=== PATIENT | female | born 1940 | race Caucasian/White ===

== ENCOUNTER 2021-07-03 21:28 | Emergency (ER) | payer MEDICARE, OTHER, SELFPAY ==
[2021-07-03 21:51] VITALS: BP 197/77; PULSE 80; RESP 17; TEMP 36.8; O2SAT 96; BMI 23.8
--- NOTE | 2021-07-03 21:59 | DI.RAD.S_ITS ---
PROCEDURE: XR ANKLE RT MIN 3V INDICATIONS: fall with bruising and swelling to ankle. TECHNIQUE: 3 views of the ankle were acquired. COMPARISON: None. FINDINGS: Bones: No dislocations. Ankle mortise is normally aligned. No suspicious bony lesions. There is a diagonal fracture involving the base of the medial malleolus with overlying soft tissue swelling. There is also prominent soft tissue swelling over the lateral malleolus where an additional subtle fracture can be seen which is diagonal, located at the axial level of the talar dome. There is a subtle contour irregularity at the dorsal margin of the distal tibial cortex seen on the lateral view, suspicious for representing the posterior element of a trimalleolar fracture in this clinical circumstance. Soft tissues: No tibiotalar joint effusion. Achilles tendon appears normal. IMPRESSION: Bimalleolar and probable trimalleolar fracture involving the ankle as discussed. Dictated by: Bin Morales M.D. on 07/03/2021 at 22:35 Approved by: Bin Morales M.D. on 07/03/2021 at 22:37
--- NOTE | 2021-07-03 22:37 | DI.CT.S_ITS ---
PROCEDURE: CT HEAD/BRAIN WO CON INDICATIONS: hit head fall down stairs TECHNIQUE: Noncontrast 4.5 mm thick angled axial sections acquired from the foramen magnum to the vertex, with coronal and sagittal reformats. For radiation dose reduction, the following was used: automated exposure control, adjustment of mA and/or kV according to patient size. COMPARISON: None. FINDINGS: Image quality: Excellent. CSF spaces: Basal cisterns are patent. No extra-axial fluid collections. The ventricles are symmetric in size and shape. Brain: No intracranial bleeds or masses. There is cerebral volume loss for age, with resultant ventricular and sulcal prominence. There are periventricular and deep white matter chronic small vessel ischemic changes. There is intracranial internal carotid artery atherosclerosis. Skull and face: Calvarium and visualized facial bones appear intact, without suspicious lesions. Sinuses: Visualized sinuses and mastoids are clear. IMPRESSION: No trauma found. Dictated by: Bin Morales M.D. on 07/03/2021 at 23:22 Approved by: Bin Morales M.D. on 07/03/2021 at 23:22
--- NOTE | 2021-07-03 23:05 | DI.CT.S_ITS ---
PROCEDURE: CT CERVICAL SPINE WO CON INDICATIONS: fall down stairs hit head TECHNIQUE: Noncontrast 3 mm thick sections acquired from the skull base to the T4 level. Sagittal and coronal reformats were then constructed. For radiation dose reduction, the following was used: automated exposure control, adjustment of mA and/or kV according to patient size. COMPARISON: None. FINDINGS: Image quality: Excellent. Bones: No fractures or dislocations. Visualized superior ribs are intact. Soft tissues: Prevertebral soft tissues are normal in thickness. No paravertebral hematomas. No apical pneumothoraces. IMPRESSION: No trauma found. Dictated by: Bin Morales M.D. on 07/03/2021 at 23:21 Approved by: Bin Morales M.D. on 07/03/2021 at 23:21
--- NOTE | 2021-07-04 00:14 | ED.FALL ---
HPI - Fall General Chief Complaint: Fall Stated Complaint: fell downstairs, head lac, right foot injury Time Seen by Provider: 07/04/21 00:14 Source: patient Mode of arrival: Wheelchair History of Present Illness HPI Narrative: 80-year-old female who presents after fall downstairs. She thinks she slipped and fell down the stairs. She is not on any anti-platelet or anticoagulation medication. She has laceration in the center of her head. She has no neck pain. She denies any nausea vomiting. Also complaining of right ankle pain. No other injuries. Related Data Previous Rx's Medication Instructions Recorded hydrocodone 5 mg-acetaminophen 325 1 tab PO Q6H PRN #10 tab 07/04/21 mg tablet Allergies Allergy/AdvReac Type Severity Reaction Status Date / Time No Known Drug Allergies Allergy Verified 07/03/21 21:50 Review of Systems Review of Systems Narrative: GENERAL: Denies chills, fatigue, malaise, fever, sweats, travel HEENT: Denies sinus pain, ear pain, sore throat, difficulty swallowing, neck pain RESPIRATORY: Denies dyspnea, cough, wheezing, hemoptysis, sputum. CARDIOVASCULAR: Denies chest pain, palpitations, orthopnea, edema GASTROINTESTINAL: Denies nausea, vomiting, abdominal pain, diarrhea, constipation, melena. : Denies dysuria, frequency, incontinence, hematuria, urinary retention, flank pain. MUSCULOSKELETAL: See HPI SKIN: Laceration NEUROLOGIC: Denies weakness, dizziness, headache, numbness, change in speech, confusion PSYCHIATRIC: No concerning psychosocial issues. 12 point review of systems is negative except for those stated above and HPI Patient History Social History Smoking Status: Never smoker Smoking Status: Never smoker alcohol intake frequency: 0-2 drinks per day Substance Use Type: does not use Exam Initial Vital Signs Initial Vital Signs: Vital Signs Temperature 98.3 F 07/03/21 21:51 Pulse Rate 80 07/03/21 21:51 Respiratory Rate 17 07/03/21 21:51 Blood Pressure 197/77 H 07/03/21 21:51 Pulse Oximetry 96 07/03/21 21:51 GENERAL: Alert 80-year-old female HEENT: Head laceration right at hairline linear, EOMI, pupils reactive, face symmetric, [moist] mucous membranes NECK: No vertebral tenderness no step-off CARDIOVASCULAR: Regular rate and rhythm without murmurs, rubs or gallops. RESPIRATORY: Breath sounds equal bilaterally, no wheezes rales or rhonchi. ABDOMEN: Soft, nontender. Normoactive bowel sounds all 4 quadrants. No guarding or rebound. EXTREMITIES: Normal range of motion, no clubbing or edema. Neurovascularly intact. Pelvis stable Right lower leg contusion distal pedal pulse intact mild swelling, knee able to flex and extend no tender fibular head NEUROLOGICAL: Alert and oriented x4. [employer] strength equal bilaterally SKIN: Warm, dry, no laceration, no petechiae, no rashes or lesions. Procedures Laceration Repair Laceration 1: Site: scalp Size (cm): 3 Description: linear Depth: simple, single layer Skin layer closed with: lorraine Size (cm): other (2 lorraine) Orthopedic Splinting/Casting Injury #1: Lower Extremity Injury Location: ankle Lower Extremity Immobilizer: posterior splint and stirrup splint Other Orthopedic Equipment: crutches Post splinting neuro exam: intact Post splinting vascular exam: intact Placed by: Nursing Course Orders Ordered: ED Orders 07/03/21 21:59 XR ankle RT min 3V Stat 07/03/21 22:37 CT head/brain wo con Stat 07/03/21 23:05 CT cervical spine wo con Stat Discontinued Medications Hydrocodone Bitart/Acetaminophen (Hydrocodone/Acet 5/325 Tablet) 1 tab PO NOW ONE Stop: 07/04/21 00:59 Last Admin: 07/04/21 01:41 Dose: 1 tab Documented by: ADARSH Hydrocodone Bitart/Acetaminophen (Hydrocodone/Acet 5/325 Prepack) 1 bottle MISC SEEINSTR ONE Stop: 07/04/21 00:59 Last Admin: 07/04/21 01:41 Dose: 1 bottle Documented by: ADARSH Diphtheria/Tetanus/Acell Pertussis (Tet,Diph,Pertuss(Acell),Vac/Pf 0.5 Ml Syringe) 0.5 ml IM .ONCE ONE Stop: 07/04/21 01:40 Last Admin: 07/04/21 01:41 Dose: 0.5 ml Documented by: ADARSH Vital Signs Vital signs: Vital Signs - 8 hr 07/03/21 21:51 07/04/21 00:22 07/04/21 01:53 Temperature 98.3 F Pulse Rate 80 88 91 H Respiratory Rate 17 Blood Pressure 197/77 H 200/96 H 174/84 H Pulse Oximetry 96 97 97 MDM - Fall Imaging Data Extremity x-ray #1: Radiologist's Impression: PROCEDURE:? XR ANKLE RT MIN 3V ? INDICATIONS:? fall with bruising and swelling to ankle. ? TECHNIQUE:? 3 views of the ankle were acquired.? ? COMPARISON:? None. ? FINDINGS:? ? Bones:? No dislocations.? Ankle mortise is normally aligned.? No suspicious bony lesions. ?There is a diagonal fracture involving the base of the medial malleolus with overlying soft tissue swelling.? There is also prominent soft tissue swelling over the lateral malleolus where an additional subtle fracture can be seen which is diagonal, located at the axial level of the talar dome.? There is a subtle contour irregularity at the dorsal margin of the distal tibial cortex seen on the lateral view, suspicious for representing the posterior element of a trimalleolar fracture in this clinical circumstance. ? Soft tissues:? No tibiotalar joint effusion.? Achilles tendon appears normal.? ? ? IMPRESSION:? Bimalleolar and probable trimalleolar fracture involving the ankle as discussed. ? Dictated by: Bin Morales M.D. on 07/03/2021 at 22:35 ? ? CT scan - head: Radiologist's Impression: PROCEDURE:? CT HEAD/BRAIN WO CON ? INDICATIONS:? hit head fall down stairs ? TECHNIQUE:? Noncontrast 4.5 mm thick angled axial sections acquired from the foramen magnum to the vertex, with coronal and sagittal reformats.? For radiation dose reduction, the following was used:? automated exposure control, adjustment of mA and/or kV according to patient size.? ? COMPARISON:? None. ? FINDINGS:? Image quality:? Excellent.? ? CSF spaces:? Basal cisterns are patent.? No extra-axial fluid collections.? The ventricles are symmetric in size and shape.? ? Brain:? No intracranial bleeds or masses.? There is cerebral volume loss for age, with resultant ventricular and sulcal prominence.? There are periventricular and deep white matter chronic small vessel ischemic changes.? There is intracranial internal carotid artery atherosclerosis.? ? Skull and face:? Calvarium and visualized facial bones appear intact, without suspicious lesions.? ? Sinuses:? Visualized sinuses and mastoids are clear.? ? IMPRESSION:? No trauma found. ? ? Dictated by: Bin Morales M.D. on 07/03/2021 at 23:22 ? ? CT - cervical spine: Radiologist's Impression: PROCEDURE:? CT CERVICAL SPINE WO CON ? INDICATIONS:? fall down stairs hit head ? TECHNIQUE:? Noncontrast 3 mm thick sections acquired from the skull base to the T4 level.? Sagittal and coronal reformats were then constructed.? For radiation dose reduction, the following was used:? automated exposure control, adjustment of mA and/or kV according to patient size.? ? COMPARISON:? None. ? FINDINGS:? Image quality:? Excellent.? ? Bones:? No fractures or dislocations.? Visualized superior ribs are intact.? ? Soft tissues:? Prevertebral soft tissues are normal in thickness.? No paravertebral hematomas.? No apical pneumothoraces.? ? ? IMPRESSION:? No trauma found. ? Dictated by: Bin Morales M.D. on 07/03/2021 at 23:21 ? ? MDM Narrative Medical decision making narrative: The patient had a mechanical fall going down the stairs. She is found to have a head laceration with a negative head CT and cervical spine CT. It usually stapled. She is found to have significant right ankle fracture however very little pain is. She is given some hydrocodone, which actually does help with her blood pressure. She is placed in a splint as well. She may require surgery is recommend orthopedic outpatient follow-up. Discharge Plan Departure Patient Disposition: Home Clinical Impression: Fall, Ankle fracture, right, Laceration Instructions: Ankle Fracture, DI for Laceration Repair -- Lorraine Activity Restrictions/Additional Instructions: *You have been diagnosed with scalp laceration, ankle fracture *What to do: At this time you may wash your hair have her lorraine removed in about 5-7 days he did by her primary care provider walk-in clinic or he may return to emergency department. It may be sore. you may ice 20-30 minutes at a time if that help Use crutches at all times. Keep splint on at all times. Cover in a bag for bathing. You will likely require surgery is *Continue to take medications as directed Cameron 1 tablet every 6 hours if needed for severe pain *Follow up with your primary care provider in 2-3 days or call [phone] Call orthopedics thing Monday *Return to ER if you should have increasing pain, inability to move toes, redness or swelling around lorraine or any new, worsening or concerning symptoms CONTROLLED SUBSTANCE DISCHARGE (Narcotoic/benzodiazepine/Flexeril/Phenergan) 1. You have been prescribed narcotic medications, it does have acetaminophen/Tylenol/paracetamol in it, DO NOT TAKE MORE THAN 4,00mg in 24 hours of Tylenol. TRAMADOL DOES NOT CONTAIN TYLENOL 2. Please understand that we cannot provide further refills of narcotics, benzodiazepines or controlled substances through the ED and her pain management will need to be through your provider. 3. While on these medications you cannot drive or operate heavy machinery. 4. You cannot sign legal documents or perform any duties such as this. 5. As long as you're taking opiate pain medications he should also be taking a stool softener such as Colace, Dulcolax, MiraLAX or prune juice, to help avoid constipation. Prescriptions: New hydrocodone-acetaminophen 5-325 mg tablet 1 tab PO Q6H PRN (Reason: pain) Qty: 10 0RF Referrals: [facility] [Provider Group] Nidia Lipscomb MD [Primary Care Provider] -
[2021-07-04 00:22] VITALS: BP 200/96; PULSE 88; O2SAT 97
[2021-07-04] MEDS: HYDROCODONE/ACET 5/325 PREPACK 1 BOTTLE MISC (01:41)
[2021-07-04] MEDS: TET,DIPH,PERTUSS(ACELL),VAC/PF 0.5 ML SYRINGE IM (01:41)
[2021-07-04] MEDS: HYDROCODONE/ACET 5/325 TABLET 1 TAB PO (01:41)
[2021-07-04 01:53] VITALS: BP 174/84; PULSE 91; O2SAT 97
== END 2021-07-04 02:25 | disposition home or self-care (01) ==
PROVIDERS: Emergency Provider Emergency Medicine; PCP Internal Medicine
DX: S82.841A Displaced bimalleolar fracture of right lower leg, initial encounter for closed fracture (principal); S01.01XA Laceration without foreign body of scalp, initial encounter; W10.9XXA Fall (on) (from) unspecified stairs and steps, initial encounter; Z23 Encounter for immunization
CPT/HCPCS: 12002; 70450; 72125; 73610; 90471; 99284; 90715

== ENCOUNTER → 2023-08-04 11:23 | Outpatient (CLI) | payer MEDICARE, SELFPAY ==
--- NOTE | 2023-08-04 11:25 | DI.CT.S_ITS ---
PROCEDURE: CT ABDOMEN PANCREATIC PROTOCOL INDICATIONS: R/O PANCREATIC MASS. JAUNDICE/WT LOSS/ABD BLOAT TECHNIQUE: Both before and after the administration of intravenous contrast, 3 mm thick pancreatic-phase images acquired from the diaphragm to the iliac crests. 3 mm thick coronal and sagittal reformats were performed. For radiation dose reduction, the following was used: automated exposure control, adjustment of mA and/or kV according to patient size. COMPARISON: None. FINDINGS: Image quality: Diagnostic. Lower chest: Unremarkable. ABDOMEN: Liver: Hypodense focus in the inferior right lobe of the liver measuring 0.4 cm, (5/50). Gallbladder: Distended. No calcified gallstones. Biliary ducts: CBD is dilated up to 1.1 cm, (6/33). There is intrahepatic biliary ductal dilatation. Pancreas: Hypoenhancing mass at the head of the pancreas measuring 2.2 x 2.1 cm, (5/52). This measures 3 cm in the craniocaudal dimension, (6/37). Pancreatic duct is dilated 1.2 cm, (5/45). Small cyst superior to the pancreatic head. Lesion abuts the duodenum. No encasement. No filling defect in the portal vein or SMV. No peripancreatic fluid collection. Adrenal Glands: No nodules. Spleen: Size is within normal limits. Kidneys and Ureters: No hydronephrosis. No solid mass. No complex renal cystic lesion which requires follow up. Stomach and Bowel: Normal colonic caliber, without significant wall thickening. Peritoneum: No abnormal intraperitoneal fluid. No free air. Ventral Wall: No hernia. Abdominal Nodes: Shotty peripancreatic mesenteric and retroperitoneal lymph nodes. Periportal lymph node measuring 0.8 cm, (5/40). Vessels: Aorta and inferior vena cava are normal in size. Dense calcified plaque at the aorta. Bones: No aggressive osseous abnormality. T11 intraosseous hemangioma. Multilevel DDD. IMPRESSION: 1. Mass at the head of the pancreas measuring 3 cm. Highly suspicious for pancreatic adenocarcinoma. Lesion abuts the duodenum. No vascular involvement. 2. Pancreatic and biliary ductal dilatation. 3. Hypodense focus in the right lobe of the liver which is too small to further characterize. Consider liver MRI with IV contrast to exclude metastasis. 4. Prominent periportal lymph node. Dictated by: Florencio Thao M.D. on 08/04/2023 at 15:41 Approved by: Florencio Thao M.D. on 08/04/2023 at 16:00
== END ==
PROVIDERS: PCP Internal Medicine; Referring Provider Surgery; Visit Provider Surgery
DX: E80.6 Other disorders of bilirubin metabolism (principal); K86.89 Other specified diseases of pancreas; K86.2 Cyst of pancreas; K83.8 Other specified diseases of biliary tract; K82.8 Other specified diseases of gallbladder; R59.0 Localized enlarged lymph nodes; D18.09 Hemangioma of other sites; I70.0 Atherosclerosis of aorta
CPT/HCPCS: 74170; Q9967